=== PATIENT | male | born 1945 | race Caucasian/White ===

== ENCOUNTER → 2017-04-08 | Day surgery (SDC) | payer MEDICARE ==
[~2017-04-08] MED LIST: ALBU6.7H INH; AMLO5TAB96 PO; ASPI81 PO; BENZ100 PO; CARV25TA PO; IMDU60TA PO; LISI-363 PO; LOVA10TA PO; METF-324 PO; NOVOLOGMXP SQ; PLAV75TA PO; RANI150 PO; ZITH250T PO
--- NOTE | 2017-04-08 13:23 | GIPROC ---
[facility] [address] [facility], [address] EGD PROCEDURE REPORT EXAM DATE: 04/08/2017 PATIENT NAME: Herbie Forbes MR #: [id number] BIRTHDATE: 1945 ATTENDING: Sabas Nunes MD ORDER #: [id number] FURNACE LINER: STATUS: outpatient INDICATIONS: The patient is a 71 yr old male here for an EGD due to loss of appetite PROCEDURE PERFORMED: EGD w/ biopsy MEDICATIONS: None, Per Anesthesia, None, and Per Anesthesia. TOPICAL ANESTHETIC: CONSENT: The patient understands the risks and benefits of the procedure and understands that these risks include, but are not limited to: sedation, allergic reaction, infection, perforation and/or bleeding. Alternative means of evaluation and treatment include, among others: physical exam, x-rays, and/or surgical intervention. The patient elects to proceed with this endoscopic procedure. medical equipment was checked for proper function. Hand hygiene and appropriate measures for infection prevention was taken. After the risks, benefits and alternatives of the procedure were thoroughly explained, Informed consent was verified, confirmed and timeout was successfully executed by the treatment team. The patient was anesthetized with topical anesthesia and the EC-[id number] ([id number]) endoscope was introduced through the mouth and advanced to the second portion of the duodenum. Retroflexed views revealed no abnormalities The gastroscope was then slowly withdrawn and removed. STOMACH: There was mild gastritis in the gastric antrum. Multiple biopsies were performed. The endoscopy was otherwise normal. ADVERSE EVENTS: There were no complications. IMPRESSIONS: 1. There was mild gastritis in the gastric antrum; multiple biopsies were performed 2. Normal endoscopy otherwise 3. Retroflexed views revealed no abnormalities RECOMMENDATIONS: 1. Await biopsy results. Biopsy results will not be ready for 7-10 days. If you don't hear from us in two weeks, call our office for biopsy results. 2. Follow-up: GI clinic PRN PATIENT CONDITION: stable DISPOSITION: Home REPEAT EXAM: Sabas Nunes MD eSigned: Sabas Nunes MD 04/08/2017 1:22 PM cc: Ray Tran, [facility] Angeline Lopez M.D.
== END | disposition home or self-care (01) ==
LOC: ESDC 10:41
PROVIDERS: ATTEND Internal Medicine Gastroenterology
DX: R63.0 Anorexia (principal); K29.70 Gastritis, unspecified, without bleeding; E11.9 Type 2 diabetes mellitus without complications; Z79.84 Long term (current) use of oral hypoglycemic drugs
CPT/HCPCS: 00740; 43239; 82948; 88305; 88312; J3010